=== PATIENT | male | born 1945 | race Caucasian/White ===

== ENCOUNTER → 2017-03-02 | Outpatient (CLI) | payer OTHER | LOC: RAD 07:54 | DX: N28.1 Cyst of kidney, acquired (principal); N28.89 Other specified disorders of kidney and ureter; Z82.49 Family history of ischemic heart disease and other diseases of the circulatory system ==

== ENCOUNTER → 2021-02-18 | Outpatient (CLI) | payer OTHER | LOC: SJCVCIMAG 07:35 | PROVIDERS: ATTEND Family Medicine | DX: I08.3 Combined rheumatic disorders of mitral, aortic and tricuspid valves (principal); R01.1 Cardiac murmur, unspecified ==